=== PATIENT | female | born 1950 | race Caucasian/White ===

== ENCOUNTER 2018-01-26 07:53 | Outpatient (CLI) | payer MEDICARE, BC | END 2018-01-26 07:54 | disposition home or self-care (01) | LOC: BICRAD 07:53 | PROVIDERS: ATTEND Allergy & Immunology | DX: Z03.89 Encounter for observation for other suspected diseases and conditions ruled out (principal); J98.4 Other disorders of lung; R91.8 Other nonspecific abnormal finding of lung field | CPT/HCPCS: 71046 ==

== ENCOUNTER 2018-03-29 20:30 | Outpatient (CLI) | payer MEDICARE, BC | END 2018-03-29 20:31 | disposition home or self-care (01) | LOC: SLEEPLAB 20:30 | PROVIDERS: ATTEND Family Medicine | DX: G47.33 Obstructive sleep apnea (adult) (pediatric) (principal); R53.83 Other fatigue; R06.83 Snoring; R06.3 Periodic breathing | CPT/HCPCS: 95810 ==

== ENCOUNTER 2021-03-12 09:38 | Outpatient (CLI) | payer MEDICARE, BC | END 2021-03-12 09:39 | disposition home or self-care (01) | LOC: BICMAMMO 09:38 | PROVIDERS: ATTEND Obstetrics & Gynecology | DX: Z12.31 Encounter for screening mammogram for malignant neoplasm of breast (principal) | CPT/HCPCS: 77063; 77067 ==

== ENCOUNTER 2021-12-02 07:23 | Outpatient (CLI) | payer MEDICARE, BC | END 2021-12-02 07:24 | disposition home or self-care (01) | LOC: BICULT 07:23 | PROVIDERS: ATTEND Internal Medicine Nephrology | DX: N18.30 Chronic kidney disease, stage 3 unspecified (principal); N28.1 Cyst of kidney, acquired | CPT/HCPCS: 76770; 93975 ==

== ENCOUNTER 2022-03-13 08:49 | Outpatient (CLI) | payer MEDICARE, BC | END 2022-03-13 08:50 | disposition home or self-care (01) | LOC: BICMAMMO 08:49 | PROVIDERS: ATTEND Obstetrics & Gynecology | DX: Z12.31 Encounter for screening mammogram for malignant neoplasm of breast (principal) | CPT/HCPCS: 77063; 77067 ==

== ENCOUNTER 2022-04-23 10:36 | Outpatient (CLI) | payer MEDICARE, BC | END 2022-04-23 10:37 | disposition home or self-care (01) | LOC: BICMAMMO 10:36 | PROVIDERS: ATTEND Family Medicine | DX: M85.88 Other specified disorders of bone density and structure, other site (principal); M81.0 Age-related osteoporosis without current pathological fracture | CPT/HCPCS: 77080 ==

== ENCOUNTER 2023-03-31 13:18 | Outpatient (CLI) | payer MEDICARE, BC | END 2023-03-31 13:19 | disposition home or self-care (01) | LOC: BICMAMMO 13:18 | PROVIDERS: ATTEND Family Medicine | DX: Z12.31 Encounter for screening mammogram for malignant neoplasm of breast (principal) | CPT/HCPCS: 77063; 77067 ==

== ENCOUNTER 2023-06-16 13:41 | Outpatient (CLI) | payer MEDICARE, BC | END 2023-06-16 13:42 | disposition home or self-care (01) | LOC: ULT 13:41 | PROVIDERS: ATTEND Family Medicine | DX: G45.9 Transient cerebral ischemic attack, unspecified (principal) | CPT/HCPCS: 93880 ==

== ENCOUNTER 2023-11-09 12:59 | Outpatient (CLI) | payer MEDICARE | END 2023-11-09 13:00 | disposition home or self-care (01) | PROVIDERS: ATTEND Psychiatry & Neurology Neurology | DX: G45.9 Transient cerebral ischemic attack, unspecified (principal) | CPT/HCPCS: 93225; 93226 ==

== ENCOUNTER 2023-11-11 14:15 | Outpatient (CLI) | payer MEDICARE | END 2023-11-11 14:16 | disposition home or self-care (01) | LOC: ULT 14:15 | PROVIDERS: ATTEND Psychiatry & Neurology Neurology | DX: G45.9 Transient cerebral ischemic attack, unspecified (principal); I08.1 Rheumatic disorders of both mitral and tricuspid valves | CPT/HCPCS: 93306 ==

== ENCOUNTER 2023-11-25 12:54 | Outpatient (CLI) | payer MEDICARE | END 2023-11-25 12:55 | disposition home or self-care (01) | LOC: MRI 12:54 | PROVIDERS: ATTEND Psychiatry & Neurology Neurology | DX: G45.9 Transient cerebral ischemic attack, unspecified (principal) | CPT/HCPCS: 70553 ==

== ENCOUNTER 2024-04-03 09:49 | Outpatient (CLI) | payer MEDICARE | END 2024-04-03 09:50 | disposition home or self-care (01) | LOC: BICMAMMO 09:49 | PROVIDERS: ATTEND Family Medicine | DX: Z12.31 Encounter for screening mammogram for malignant neoplasm of breast (principal) | CPT/HCPCS: 77063; 77067 ==